=== PATIENT | male | born 1945 | race Hispanic/Latino ===

== ENCOUNTER 2016-12-09 15:35 | Outpatient (CLI) | payer MEDICARE ==
--- NOTE | 2016-12-09 16:03 | XRay Report ---
CHEST 2 VIEWS INDICATION: COPD exacerbation, smoker. COMPARISON: None similar at this institution. FINDINGS: PA and lateral chest radiographs demonstrate severely hyperexpanded lungs without definite large pleural effusions or CHF. Costophrenic angle blunting noted. Normal cardiomediastinal silhouette. Osteopenia and mild thoracic spine degenerative spurring. CONCLUSION: Severe COPD, as described. Thank you for the opportunity to participate in this patient's care.
== END 2016-12-09 15:36 | disposition home or self-care (01) ==
LOC: XRAY 15:35
PROVIDERS: ATTEND Internal Medicine
DX: J44.1 Chronic obstructive pulmonary disease with (acute) exacerbation (principal); M85.80 Other specified disorders of bone density and structure, unspecified site; F17.210 Nicotine dependence, cigarettes, uncomplicated
CPT/HCPCS: 71020

== ENCOUNTER 2017-03-24 13:20 | Inpatient (IN) | payer MEDICARE ==
[2017-03-24] MEDS ORDERED: PROVENTIL IH PRN (14:43)
[2017-03-24 15:05] LABS: Eosinophils % (Auto) 1.2 % (0.0-4.3); Hematocrit 40.3 % (35.5-45.6); Hemoglobin 13.4 gm/dl (11.8-15.2); Mean Corpuscular HGB Conc 33 % (32-34); Mean Corpuscular Hemoglobin 31 pg (28-32); Mean Corpuscular Volume 93 fl (84-94); Platelet Count 309 K/mm3 (140-440); Red Blood Count 4.35 M/mm3 (3.65-5.03); Red Cell Distribution Width 14.7 % (13.2-15.2)
--- NOTE | 2017-03-24 15:06 | Admit Criteria Form ---
Admission Criteria Documentation: COPD Clinical Indications for Admission to Inpatient Care (Place 'X' for any and all applicable criteria): Admission is indicated for ANY ONE of the following (1)(2)(3): [ ]I. Acute exacerbation by high-risk comorbidity (e.g., pneumonia, dysrhythmia, heart failure, pleural effusion, pneumothorax) or severe underlying COPD (e.g., steroid dependent) [ X]II. Inpatient admission required rather than observation care (see Chronic Obstructive Pulmonary Disease: Observation Care) because of ANY ONE of the following: [ ]a) New or pre-existing signs or symptoms of COPD (eg, dyspnea or Tachypnea at rest or with minimal activity) that persist despite outpatient and observation care treatment [ ]b) New-onset hypoxemia (room air SaO2 less than 90%, PO2 less than 60 mm Hg (8.0 kPa)) that persists despite outpatient and observation care treatment [X ]c) Worsening of pre-existing hypoxemia (eg, new or increased requirement for supplemental oxygen to maintain oxygenation at baseline level) that persists despite outpatient and observation care treatment, with oxygen treatment needs performable only in acute inpatient setting [ ]d) Hypercarbia (PCO2 greater than 40 mm Hg (5.3 kPa))-induced respiratory acidosis (pH less than 7.35) that persists despite outpatient and observation care treatment [ ]e) Supplemental oxygen or respiratory treatments for over 24 hours that are performable only in acute inpatient setting [ ]f) Chest tube placement with active evacuation (e.g., suction, drainage) (5) [ X]g) Other condition, treatment or monitoring requiring inpatient admission [ ]III. Planned invasive surgical or diagnostic procedures requiring acute- care hospitalization [ ]IV. Acute respiratory failure (e.g., uncompensated hypercarbia, severe hypoxemia) [ ]V. Severe comorbid condition (e.g., severe steroid myopathy, acute vertebral fracture) that has acutely worsened pulmonary function [ ]. Confusion state, lethargy, obtundation, stupor or coma Extended stay beyond goal length of stay may be needed for (31)(32): [ ]a ) Respiratory Failure. [ ]b) Severe or persisting hypoxemia or hypercarbia [ ]c) Severe or persistent dyspnea [ ]d) Comorbidities (e.g. chronic heart failure, atrial fibrillation with rapid response, pneumonia) [ ]e) Malnutrition The original [facility] content created by [facility] has been revised. The portions of the content which have been revised are identified through the use of italic text or in bold, and [facility] has neither reviewed nor approved the modified material. All other unmodified content is copyright [facility]. Please see references footnoted in the original [facility] edition 2016 Admission Criteria Met: Yes
[2017-03-24 15:14] LABS: INR 0.94 (0.87-1.13)
[2017-03-24 15:19] LABS: Anion Gap 14 mmol/L; BUN/Creatinine Ratio 21.42; Blood Urea Nitrogen 15 mg/dL (9-20); Calcium 9.1 mg/dL (8.4-10.2); Carbon Dioxide 35 mmol/L (22-30); Chloride 96.6 mmol/L (98-107); Glucose 91 mg/dL (75-100); Sodium 141 mmol/L (137-145)
[2017-03-24] MEDS ORDERED: PROAIR IH SCH (16:00)
[2017-03-24] MEDS: LOVENOX SUB-Q SCH (17:02)
[2017-03-24] MEDS ORDERED: PULMICORT 0.5 MG, BROVANA NEBU 15 MCG IH SCH (20:00)
[2017-03-24] MEDS: PROVENTIL IH SCH (21:12)
[2017-03-24] MEDS: PULMICORT IH SCH (21:12)
[2017-03-24] MEDS: BROVANA NEBU IH SCH (21:16)
[2017-03-25] MEDS: PROVENTIL IH SCH ×4 (02:51→22:04)
[2017-03-25] MEDS: PULMICORT IH SCH ×2 (07:35→22:08)
[2017-03-25] MEDS: BROVANA NEBU IH SCH ×2 (07:35→22:08)
[2017-03-25] MEDS: PROzac PO SCH (09:41)
[2017-03-25] MEDS: OYSCO D 500 MG-200 UNIT PO SCH (09:41)
[2017-03-25] MEDS: LOVENOX SUB-Q SCH (09:42)
--- NOTE | 2017-03-25 10:11 | History and Physical Report ---
History of Present Illness Date of admission: 03/24/17 14:02 Chief complaint: Fainting History of present illness: 71 y.o. WM brought to my office due to the fact pt has been fainting, dizzy spells and is in need of 24.7 care giving. He is a recent who lives with his brother who apparently sustained several falls with near syncopal episodes. h.o skin cancer, HTN, COPD and hypoxia on 24/7 oxygen. Past History Past Medical History: COPD, hypertension, other (skin cancer, DJD, LBP) Family history: hypertension Medications and Allergies Allergies Allergy/AdvReac Type Severity Reaction Status Date / Time No Known Allergies Allergy Unverified 12/09/16 15:35 Active Meds: Active Medications Albuterol (Proventil) 2.5 mg IH Q6HRT [facility] Last Admin: 03/25/17 07:36 Dose: Not Given Albuterol (Proventil) 2.5 mg IH Q4HRT PRN PRN Reason: Shortness Of Breath Arformoterol Tartrate (Brovana Nebu) 15 mcg IH Q12HRT [facility] Last Admin: 03/25/17 07:35 Dose: 15 mcg Budesonide (Pulmicort) 0.5 mg IH Q12HRT [facility] Last Admin: 03/25/17 07:35 Dose: 0.5 mg Calcium/Vitamin D ([place] D 500 Mg-200 Unit) 2 each PO QDAY [facility] Last Admin: 03/25/17 09:41 Dose: 2 each Enoxaparin Sodium (Lovenox) 40 mg SUB-Q QDAY [facility] Last Admin: 03/25/17 09:42 Dose: 40 mg Fluoxetine HCl (Prozac) 20 mg PO QDAY [facility] Last Admin: 03/25/17 09:41 Dose: 20 mg Review of Systems All systems: negative Exam - Physical Exam Narrative exam: WM on nasal ox cannula in NAD in a w/c - Constitutional Vitals: Temp Pulse Resp BP Pulse Ox 98.2 F 87 20 153/84 96 03/25/17 09:36 03/25/17 09:36 03/25/17 09:36 03/25/17 09:36 03/25/17 07:37 General appearance: Present: no acute distress, well-nourished - EENT Eyes: Present: PERRL ENT: hearing intact, clear oral mucosa, other (Several scars in the bridge of nose) - Neck Neck: Present: supple, normal ROM - Respiratory Respiratory effort: normal, other (Increased AP diameter) Respiratory: bilateral: CTA, wheezing (Mild) - Cardiovascular Heart Sounds: Present: S1 & S2. Absent: rub, click - Extremities Extremities: pulses symmetrical, No edema Peripheral Pulses: within normal limits - Abdominal General gastrointestinal: Present: soft, non-tender, non-distended, normal bowel sounds Male genitourinary: Present: normal - Integumentary Integumentary: Present: clear, warm, dry - Musculoskeletal Musculoskeletal: gait normal, strength equal bilaterally - Psychiatric Psychiatric: appropriate mood/affect, intact judgment & insight - Neurologic Neurologic: CNII-XII intact, moves all extremities Results - Labs CBC & Chem 7: 03/24/17 14:40 03/24/17 14:40 Labs: Abnormal lab results 03/24/17 03/24/17 Range/Units 14:40 14:40 [place] % (Auto) 10.0 H (0.0-7.3) % [place] # 0.9 H (0.0-0.8) K/mm3 Chloride 96.6 L (98-107) mmol/L Carbon Dioxide 35 H (22-30) mmol/L Creatinine 0.7 L (0.8-1.5) mg/dL Assessment and Plan - Patient Problems (1) Syncope Current Visit: Yes Status: Acute Qualifiers: Syncope type: S Encounter type: E Plan to address problem: All lab so far good. I believe his ox levels dropped by efforts, he needs and requires nursing care 14/03. Will ask for NHP (2) Hypoxia Current Visit: Yes Status: Acute Plan to address problem: Pox 96, no change so far in requirements. (3) COPD (chronic obstructive pulmonary disease) Current Visit: Yes Status: Acute Qualifiers: COPD type: C Chronic bronchitis type: C Emphysema type: E (4) HTN (hypertension) Current Visit: Yes Status: Acute Qualifiers: Hypertension type: H
[2017-03-26] MEDS: PROVENTIL IH SCH ×4 (01:58→22:08)
[2017-03-26] MEDS: PULMICORT IH SCH ×2 (07:20→20:53)
[2017-03-26] MEDS: BROVANA NEBU IH SCH ×2 (07:20→20:53)
--- NOTE | 2017-03-26 09:59 | Progress Note ---
Assessment and Plan - Patient Problems (1) Syncope Current Visit: Yes Status: Acute Qualifiers: Syncope type: S Encounter type: E Plan to address problem: All lab so far good. I believe his ox levels dropped by efforts, he needs and requires nursing care 14/03. Will ask SS for NHP, yet to start paperwork. (2) Hypoxia Current Visit: Yes Status: Acute (3) COPD (chronic obstructive pulmonary disease) Current Visit: Yes Status: Acute Qualifiers: COPD type: C Chronic bronchitis type: C Emphysema type: E (4) HTN (hypertension) Current Visit: Yes Status: Acute Qualifiers: Hypertension type: H Subjective Interval history: Doing well, on NSR Objective - Exam Narrative Exam: WM on nasal ox cannula in NAD in a w/c - Constitutional Vitals: Vital Signs - 12hr 03/25/17 03/25/17 03/26/17 22:07 22:17 01:59 Temperature Pulse Rate Pulse Rate [ 72 76 83 Anterior Bilateral Throughout] Respiratory Rate Respiratory 18 18 16 Rate [Anterior Bilateral Throughout] Blood Pressure O2 Sat by Pulse 97 Oximetry 03/26/17 03/26/17 03/26/17 02:14 07:20 07:28 Temperature Pulse Rate Pulse Rate [ 85 78 79 Anterior Bilateral Throughout] Respiratory Rate Respiratory 18 18 18 Rate [Anterior Bilateral Throughout] Blood Pressure O2 Sat by Pulse Oximetry 03/26/17 03/26/17 03/26/17 07:38 08:00 09:24 Temperature 98.7 F Pulse Rate 70 74 Pulse Rate [ Anterior Bilateral Throughout] Respiratory 20 Rate Respiratory Rate [Anterior Bilateral Throughout] Blood Pressure 109/51 O2 Sat by Pulse 96 Oximetry General appearance: Present: no acute distress, well-nourished - EENT Eyes: PERRL, EOM intact ENT: hearing intact, clear oral mucosa Ears: bilateral: normal - Neck Neck: supple, normal ROM - Respiratory Respiratory effort: normal Respiratory: bilateral: wheezing (Mild) - Breasts Breasts: normal - Cardiovascular Rhythm: regular Heart Sounds: Present: S1 & S2. Absent: gallop, rub Extremities: pulses intact, No edema, normal color, Full ROM - Gastrointestinal General gastrointestinal: Present: soft, non-tender, non-distended, normal bowel sounds Rectal Exam: deferred - Genitourinary Male genitourinary: deferred, normal - Integumentary Integumentary: clear, warm, dry - Musculoskeletal Musculoskeletal: 1, strength equal bilaterally - Neurologic Neurologic: moves all extremities - Psychiatric Psychiatric: memory intact, appropriate mood/affect, intact judgment & insight - Labs CBC & Chem 7: 03/24/17 14:40 03/24/17 14:40
[2017-03-26] MEDS: OYSCO D 500 MG-200 UNIT PO SCH (10:08)
[2017-03-26] MEDS: PROzac PO SCH (10:08)
[2017-03-26] MEDS: LOVENOX SUB-Q SCH (10:08)
--- NOTE | 2017-03-26 16:54 | Discharge Summary ---
Providers - Providers Date of Admission: 03/24/17 14:02 Attending physician: NAIMA DUNCAN 03/24/17 Consult to Case Management [CONS] Routine Services Needed at Discharge: Other Notified:: DRE Comment:: CONSULT PAYMENT ANALYST FOR NHP Additional Physician Instructions: CONSULT PAYMENT ANALYST FOR NHP. 03/26/17 10:00 Consult Patient Care Home [employer] Service [employer]er [CONS] Urgent Reason For Exam: Was ordered a SS consult on admission for NHP Primary care physician: NAIMA DUNCAN Hospitalization Condition: Stable Hospital course: Admitted to monitor general condition since pt has fallen and fainted several time. Recommended NHP due to failure to thrive status. Disposition: [id number]/[place]-03 SNF [facility] C[facility] - Discharge Diagnoses (1) Syncope Status: Chronic Qualifiers: Syncope type: S Encounter type: E (2) Hypoxia Status: Acute (3) COPD (chronic obstructive pulmonary disease) Status: Acute Qualifiers: COPD type: C Chronic bronchitis type: C Emphysema type: E (4) HTN (hypertension) Status: Acute Qualifiers: Hypertension type: H Core Measure Documentation - Palliative Care Palliative Care/ Comfort Measures: Not Applicable - Core Measures Any of the following diagnoses?: none Exam - Physical Exam Narrative exam: WM on nasal ox cannula in NAD in a w/c - Constitutional Vitals: Temp Pulse Resp BP Pulse Ox 98.7 F 85 18 109/51 92 03/26/17 09:24 03/26/17 14:36 03/26/17 14:36 03/26/17 09:24 03/26/17 10:00 General appearance: Present: no acute distress, well-nourished - EENT Eyes: Present: PERRL ENT: hearing intact, clear oral mucosa - Neck Neck: Present: supple, normal ROM - Respiratory Respiratory effort: normal Respiratory: bilateral: wheezing (Mild) - Cardiovascular Heart Sounds: Present: S1 & S2. Absent: rub, click - Extremities Extremities: pulses symmetrical, No edema Peripheral Pulses: within normal limits - Abdominal General gastrointestinal: Present: soft, non-tender, non-distended, normal bowel sounds Male genitourinary: Present: deferred, normal - Rectal Rectal Exam: deferred - Integumentary Integumentary: Present: clear, warm, dry - Musculoskeletal Musculoskeletal: gait normal, strength equal bilaterally - Psychiatric Psychiatric: appropriate mood/affect, intact judgment & insight - Neurologic Neurologic: CNII-XII intact, moves all extremities Plan Activity: up only with assistance, fall precautions Diet: low cholesterol, low salt Durable Medical Equipment Needed Upon Discharge: Oxygen, Trapeze, Hospital Bed, Siderails Follow up with: NAIMA DUNCAN MD [Primary Care Provider] - 7 Days
[2017-03-27] MEDS: PROVENTIL IH SCH ×2 (03:09→08:26)
[2017-03-27] MEDS: BROVANA NEBU IH SCH (08:26)
[2017-03-27] MEDS: PULMICORT IH SCH (08:26)
[2017-03-27] MEDS: OYSCO D 500 MG-200 UNIT PO SCH ×2 (08:47→10:00)
[2017-03-27] MEDS: PROzac PO SCH ×2 (08:47→10:00)
[2017-03-27] MEDS: LOVENOX SUB-Q SCH ×2 (08:48→10:00)
[2017-03-27 09:40] VITALS: BP 106/62
== END 2017-03-27 13:25 | DRG 189 ==
LOC: UNDOADMIN 13:20 → 3A 13:20 → CC2 14:02
PROVIDERS: ADMIT Internal Medicine; ATTEND Internal Medicine
DX: J96.11 Chronic respiratory failure with hypoxia (principal); J44.9 Chronic obstructive pulmonary disease, unspecified; I10 Essential (primary) hypertension; Z82.49 Family history of ischemic heart disease and other diseases of the circulatory system; R62.7 Adult failure to thrive; Z85.828 Personal history of other malignant neoplasm of skin; Z99.81 Dependence on supplemental oxygen
CPT/HCPCS: 36415; 80048; 82947; 83036; 84443; 85025; 85610; 93005; 93010; 94640; 94760; J1650